=== PATIENT | male | born 1985 | race Caucasian/White ===

== ENCOUNTER 2022-09-07 12:11 | Emergency (ER) | payer OTHER, SELFPAY ==
[2022-09-07] VITALS (21 sets, daily range): BP systolic 119–138; BP diastolic 73–103; PULSE 69–100; RESP 16–25; TEMP 36.9; O2SAT 98–100
--- NOTE | ~2022-09-07 | CT_ITS ---
EXAMINATION: CTA chest PE protocol DATE: 09/07/2022 18:34 INDICATION: Pleuritic chest pain TECHNIQUE: Computed tomography (CT) pulmonary angiogram of the chest was performed with 100 mL Omnipa que-350 intravenous contrast. Additional 3D reconstructions utilizing coronal maximum intensity proje ction (MIP) were performed. Automated exposure control and iterative reconstruction technique were em ployed. The dose-length product was 394.58 mGy-cm. COMPARISON: None FINDINGS: Excellent contrast opacification of the pulmonary arteries. There is mild streak artifact from dense contrast in the superior vena cava and right atrium. No significant motion artifact yielding diagnost ic quality study which demonstrates no pulmonary embolism. Mild biapical pleural-parenchymal scarring . 4 mm pleural-based nodule in the left lower lobe which given size and patient age is most likely be nign sequela of old granulomatous disease. No pneumonia, pulmonary edema, pleural effusion or pneumot horax. Heart size is normal. No pericardial effusion. Thoracic aorta is normal in caliber with no dis section. No pathologically enlarged thoracic lymphadenopathy. A few small calcified gallstones in the dependent aspect of the normal-appearing gallbladder. No wall thickening or pericholecystic inflamma tory stranding to suggest acute cholecystitis. Mild upper thoracic levocurvature. IMPRESSION: 1. No pulmonary embolism or other acute cardiopulmonary disease. 2. Cholelithiasis. Reviewed, dictated and finalized at location A.
--- NOTE | ~2022-09-07 | XR_ITS ---
EXAMINATION: XR chest 2V DATE: 09/07/2022 12:57 INDICATION: Chest pain. TECHNIQUE: Frontal and lateral views of the chest were obtained. COMPARISON: None. FINDINGS: There is mild scarring at the lung apices. No pleural effusion or pneumothorax. The heart s ize is normal. IMPRESSION: 1. Mild scarring at the lung apices. Reviewed, dictated and finalized at location A.
--- NOTE | ~2022-09-07 | US_ITS ---
EXAMINATION: US right upper quadrant DATE: 09/07/2022 20:32 INDICATION: Elevated bilirubin TECHNIQUE: Multiple grayscale and Doppler ultrasound images of the abdomen were obtained. COMPARISON: None FINDINGS: The pancreatic head and body are normal in appearance. The pancreatic tail is not visualized. Mei er has normal echogenicity and contour, with a smooth surface. No liver lesion identified. No intrahe patic biliary duct dilation suspected. Portal venous flow was seen in the hepatopetal, normal directi on and has normal Doppler waveform. Small amount of mobile hypoechoic sludge and shadowing echogenic gallstones within the lumen of the normal-appearing gallbladder. No evident gallbladder dilation or w all thickening. The common bile duct measures 4 mm, which is normal. Sonographic Beavers sign was repo rted as negative by the loan and credit manager. The visualized portion of the right kidney demonstrates normal c ontour and echogenicity with no hydronephrosis. IMPRESSION: 1. Cholelithiasis with positive sonographic Beavers sign. Normal appearing nondilated gallbladder whic h is equivocal for acute cholecystitis although suspicion is low. There is continued clinical suspici on for acute cholecystitis would consider HIDA scan for further evaluation. Reviewed, dictated and finalized at location A. IMPRESSION: 1. Cholelithiasis with positive sonographic Beavers sign. Normal appearing nondi lated gallbladder which is equivocal for acute cholecystitis although suspicion is low. There is continued clinical suspicion for acute cholecystitis would co nsider HIDA scan for further evaluation.
--- NOTE | 2022-09-07 12:13 | ECG_ITS ---
Measurements Intervals [place] Rate: 79 P: 76 MI: 168 QRS: 76 QRSD: 80 T: 66 QT: 349 QTc: 401 Interpretive Statements SINUS RHYTHM EARLY REPOLARIZATION [ST ELEVATION WITH NORMALLY INFLECTED T WAVE] ABNORMAL ECG NO PREVIOUS ECG AVAILABLE FOR COMPARISON Electronically Signed On 09-07-2022 12:29:49 CDT by Sky Bell M.D.
[2022-09-07 12:39] LABS: Basophils Absolute Auto 0.1 K/mm3 (0.0-0.1); Basophils Percent Auto 0.5 % (0.2-1.2); Eosinophils Percent Auto 0.3 % (0-4.4); Hematocrit 47.2 % (42.0-52.0); Hemoglobin 16.1 g/dL (14.0-18.0); Immature Granulocyte Absolute 0.03 K/mm3 (0.00-0.031); Immature Granulocyte Percent A 0.3 % (0-0.5); Lymphocytes Absolute Auto 1.53 K/mm3 (0.9-3.2); Mean Corpuscular HGB Conc 34.1 g/dl (32-36); Mean Corpuscular Hemoglobin 30.1 pg (26-34); Mean Corpuscular Volume 88.4 fl (80-100); Mean Platelet Volume 9.8 fl (7.4-10.4); Monocytes Absolute Auto 0.9 K/mm3 (0.1-0.6); Monocytes Percent Auto 8.5 % (2.6-8.5); Neutrophils Absolute Auto 7.7 K/mm3 (1.3-6.7); Neutrophils Percent Auto 75.4 % (45.5-73.1); Platelet Count Result 257 k/mm3 (150-375); Red Blood Count 5.34 M/mm3 (4.6-6.20); Red Cell Distribution Width 12.3 % (11.5-14.5); White Blood Count 10.2 K/mm3 (4.5-10.0)
[2022-09-07 12:50] LABS: Alanine Aminotransferase 25 U/L (6-50); Albumin Level 5.1 g/dL (3.5-5.1); Alkaline Phosphatase 68 U/L (38-126); Anion Gap 6 mmol/L (8-16); Aspartate Amino Transferase 28 U/L (17-59); Bilirubin,Total 3.6 mg/dL (0.2-1.3); Blood Urea Nitrogen 9 mg/dL (9-20); Calcium 9.3 mg/dL (8.4-10.2); Carbon Dioxide 29 mmol/L (22-30); Chloride 103 mmol/L (98-107); Estimated CRCL calculation 94 ml/min; Estimated Glomerular Filt Rate > 60; Glucose 93 mg/dL (65-110); Lipase 38 U/L (23-300); Potassium 3.8 mmol/L (3.4-5.0); Sodium 138 mmol/L (137-145)
[2022-09-07 12:53] LABS: Partial Thromboplastin Time 29.5 SECONDS (22.3-36.8)
[2022-09-07 13:02] LABS: Troponin I < 0.012 ng/mL (0.000-0.034)
[2022-09-07 16:12] LABS: Troponin I < 0.012 ng/mL (0.000-0.034)
--- NOTE | 2022-09-07 18:18 | ED.CHESTPAIN ---
HPI - Chest Pain General Chief Complaint: Chest Pain Stated Complaint: chest pain when breathing Time Seen by Provider: 09/07/22 18:05 History of Present Illness HPI narrative: 37-year-old male without medical history reports for evaluation of substernal chest pain and associated dyspnea that started at 0500 this morning. Pt states he took Tylenol and Tums with improvement, however it never fully went away. States about an hour ago the pain worsened again. Reports pain is worse with movement and inspiration. Pain improves when leaning forward. States the pain does not radiate to his neck, arms, or back. Described the pain as tight. Denies lower extremity edema, calf pain, history of similar episodes, cough, fever, body aches or chills. Denies cardiac history, drug use, alcohol use, smoking. Does not take daily medications. Reports pain is 4/10. Related Data Allergies Allergy/AdvReac Type Severity Reaction Status Date / Time morphine AdvReac Unknown VOMITING Verified 09/07/22 12:23 Review of Systems Review of Systems: CONSTITUTIONAL: Denies fever, chills EYES: Denies visual changes, redness, or discharge. ENT: Denies rhinorrhea, congestion, sore throat, or otalgia. CARDIOVASCULAR: See HPI RESPIRATORY: Denies cough or dyspnea. GASTROINTESTINAL: Denies abdominal pain, nausea, vomiting, or diarrhea. GENITOURINARY: Denies dysuria or hematuria. SKIN: Denies rash or itching. MUSCULOSKELETAL: Denies back pain, joint pain, or myalgia. NEUROLOGIC: Denies headache, numbness, dizziness, or weakness. PSYCHIATRIC: Denies anxiety or depression. Exam Narrative: GENERAL: Well-appearing, well-nourished, and in no acute distress. Patient sitting in up exam bed. HEAD: Normocephalic, atraumatic. EYES: PERRLA and EOMI. ENT: Nares clear, no rhinorrhea or epistaxis. Mucous membranes moist. Oropharynx without tonsillar hypertrophy exudate or other lesions. NECK: Supple. No adenopathy or masses. No carotid bruits or JVD CHEST: Clear to auscultation. No respiratory distress. No wheezes rales or rhonchi. No tenderness to chest wall. HEART: Regular rate and rhythm. No murmur heard. Pericardial friction rub present at LLSB. Normal peripheral pulses. ABDOMEN: Soft, nontender, nondistended, normal active bowel sounds. EXTREMITIES: Normal range of motion. No edema. Negative bambi's sign. No pain with calf squeeze. SKIN: Warm, dry, no rash. NEURO: No focal deficits. Alert and oriented x3. PSYCH: Normal mood and affect. Pt tearful on exam which he reports is secondary to pain. Course Course Emergency Course: 1944: Pt reevaluated and reports his pain has improved since he has not been moving. He is resting comfortably in the exam bed, sitting up. 2205: Pt reevaluated after Toradol and states he feels much better. Reports his symptoms are night and day and reports feeling safe to go home. Vital Signs Vital signs: Vital Signs Temperature 98.5 F 09/07/22 12:32 Pulse Rate 75 09/07/22 12:32 Respiratory Rate 18 09/07/22 12:32 Blood Pressure 128/81 09/07/22 12:32 Pulse Oximetry 99 09/07/22 12:32 Oxygen Delivery Room Air 09/07/22 12:32 Temperature 98.5 F 09/07/22 12:32 Pulse Rate 74 09/07/22 22:45 Respiratory Rate 20 09/07/22 22:45 Blood Pressure 125/73 09/07/22 21:31 Pulse Oximetry 98 09/07/22 22:45 Oxygen Delivery Room Air 09/07/22 18:20 MDM - Chest Pain MDM Narrative Medical decision making narrative: 37-year-old male reports for substernal chest pain that started at 0500 this morning. Pain worse with movement and inspiration, better with leaning forward and laying still. Exam reveals pericardial friction rub. Pt neurovascularly intact. 3 troponin negative in the ED. EKG reveals sinus rhythm with early repolarization vs. diffuse ST elevation consistent with pericarditis. CBC with mild leukocytosis of 10.2. CMP with elevated bilirubin of 3.6, however negative LFTs. Ultrasound obtained for further evaluati
[2022-09-07] MEDS: ONDANSETRON INJ 4 MG/2 ML VIAL IV PUSH (18:53)
[2022-09-07] MEDS: MORPHINE SULFATE (*CRX) 2 MG/ML INJ IV PUSH (18:54)
[2022-09-07 19:39] LABS: NT Pro B Type Natriuretic Pept 33 pg/mL (19.9-100)
[2022-09-07 19:41] LABS: Troponin I < 0.012 ng/mL (0.000-0.034)
[2022-09-07] MEDS: KETOROLAC 30 MG/ML VIAL (*BKC) IV PUSH (21:11)
[2022-09-07 22:47] LABS: CRP 1.9 mg/dL (<1.0)
[2022-09-07 23:30] LABS: Erythrocyte Sedimentation Rate 10 mm/hr (0-20)
== END 2022-09-07 23:14 | disposition home or self-care (01) ==
PROVIDERS: Emergency Medicine; Emergency Provider Physician Assistant
DX: I31.9 Disease of pericardium, unspecified (principal); J98.4 Other disorders of lung; R17 Unspecified jaundice; K80.20 Calculus of gallbladder without cholecystitis without obstruction; R07.2 Precordial pain; R94.31 Abnormal electrocardiogram [ECG] [EKG]
CPT/HCPCS: 36415; 71046; 71275; 76705; 80053; 83690; 83880; 84484; 85025; 85610; 85652; 85730; 86140; 93005; 96374; 96375; 99284; J1885; J2270; J2405; Q9967